=== PATIENT | female | born 1940 | race Caucasian/White ===

== ENCOUNTER 2017-03-21 06:30 | Day surgery (SDC) | payer MEDICARE, BC ==
[2017-03-17 16:27] VITALS: BMI 34.7
[~2017-03-21 06:30] MED LIST: ALPRAZolam 0.25 MG TAB PO PRN; ALPRAZolam 0.5 MG TAB PO PRN; ATORVASTATIN 80 MG TAB PO STA; NITROGLYCERIN SL TABS 0.4 MG TAB SUBLINGUAL PRN; SODIUM CHLORIDE 0.9% 1,000 ML in EMPTY BAG 1 BAG IV ONE
[2017-03-21] MEDS ORDERED: MIDAZOLAM 2 MG/2 ML VIAL ONE (07:06)
[2017-03-21] MEDS ORDERED: fentaNYL (PF) 50 MCG/ML 2 ML AMP ONE (07:07)
[2017-03-21] MEDS ORDERED: LIDOCAINE 2% INJ 20 MG/ML (20 ML MDV) ONE (07:08)
[2017-03-21] MEDS ORDERED: SODIUM CHLORIDE 0.9% 1,000 ML IV ONE (07:09)
[2017-03-21 07:19] LABS: INR 1.3 (<1.1); Prothrombin Time 12.6 sec (9.0-12.0)
[2017-03-21] MEDS ORDERED: fentaNYL (PF) 50 MCG/ML 2 ML AMP IV ONE ×2 (07:43)
[2017-03-21] MEDS ORDERED: MIDAZOLAM 2 MG/2 ML VIAL IV ONE (07:43)
[2017-03-21] MEDS ORDERED: BENZOCAINE SPRAY 100 APPLIC/CAN MUCOUS MEM ONE (07:44)
[2017-03-21] MEDS ORDERED: LIDOCAINE 2% INJ 20 MG/ML SQ ONE (08:08)
--- NOTE | 2017-03-21 08:30 | ECHOT ---
DATE OF SERVICE: INDICATION: Aortic stenosis. PROCEDURE NOTE: After obtaining informed consent, transesophageal echocardiogram was performed in the left lateral position using an Omniplane probe. Local and IV sedation were obtained using Xylocaine spray, 2 mg of Versed and 25 mcg of fentanyl. Patient tolerated the procedure well without any obvious immediate complications. FINDINGS: 1. Aortic valve is a 3-leaflet valve that is heavily calcified and shows severe restriction in leaflet mobility. By planimetry, the valve area is around 0.8 cm2. 2. Mitral valve shows moderate mitral regurgitation. 3. There is mild tricuspid regurgitation. 4. Left ventricle has normal size, shows atypical septal motion with preserved LV function with an ejection fraction of 50% to 55%. 5. Left atrium appears enlarged. 6. Right atrium and right ventricle are within normal limits. 7. 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 In the interatrial septum there is a PA flow with left to right shunt with agitated saline contrast study. There is no evidence of sqbji-ax-bdbw shunt. FINDINGS: FINAL IMPRESSION:
[2017-03-21] MEDS ORDERED: IOHEXOL 350 MG/ML 125ML BOTTLE INJ ONE (08:40)
[2017-03-21] MEDS ORDERED: IV FLUID CONTINUATION 1,000 ML IV ONE (08:41)
[2017-03-21] MEDS ORDERED: SODIUM CHLORIDE 0.9% 1,000 ML IV SCH (08:45)
[2017-03-21] MEDS ORDERED: RX INFO: IV CONTRAST WAS GIVEN 1 EACH MISC MISCELLANE PRN (08:45)
[2017-03-21 09:08] VITALS: RESP 16; TEMP 98
--- NOTE | 2017-03-21 09:20 | CC ---
DATE OF SERVICE: INDICATION: Severe aortic stenosis in a patient with known CAD, status post CABG. PROCEDURE NOTE: After obtaining informed consent, left heart catheterization and coronary angiogram, aortogram, selective injection of the bypass grafts and subclavian angiography was performed via the right femoral artery using standard Emelia catheters. Patient tolerated the procedure well without any obvious immediate complications. A femoral angiogram was obtained and Angio-Seal was deployed for hemostasis. FINDINGS: 1. HEMODYNAMICS: Central aortic pressures is 136/70 mm. 2. AORTOGRAM: Aortogram is performed in the left lateral position to evaluate for the ascending aorta. There is mild dilatation of the ascending aorta. There is no evidence of dissection aneurysm. There is 1 to 2+ aortic regurgitation noted. 3. ANGIOGRAPHIC DATA: LEFT MAIN CORONARY ARTERY: Left main coronary artery is a normal size vessel and appears heavily calcified. It divides into left anterior descending coronary artery and circumflex coronary artery. Circumflex coronary artery shows a 95% stenosis in its proximal part. Circumflex coronary artery and its branches are free of significant stenosis. Right coronary artery is a large dominant vessel and is free of significant stenosis. 4. BARRON to LAD: BARRON appears patent. Proximal and distal anastomotic sites are free of disease and point hope ira LAD is free of significant disease. 5. Venous graft to diag appears patent, body of the graft is free of disease. Proximal and distal anastomotic sites are free of disease and point hope ira vessel appears normal. 6. A subclavian angiogram was performed and there is a 40% subclavian stenosis noted. CONCLUSION: 1. Severe aortic stenosis by transesophageal echo. 2. [place] 1 vessel coronary artery disease with patent BARRON to LAD and venous graft to diagonal. 3. Moderate mitral regurgitation. 4. Evidence of qlja-qh-pkmfz shunt either way a small atrial septal defect or a patent foramen ovale. PLAN: Patient will need aortic valve replacement with or without mitral valve repair and closure of the PFO. Patient has subclavian artery stenosis. In case she has any symptoms after valve replacement, we will bring her back and perform a stent on that artery.
[2017-03-21] MEDS ORDERED: BENZOCAINE SPRAY 100 APPLIC/CAN ONE (10:21)
[2017-03-21 12:34] VITALS: PULSE 64
[2017-03-21 14:15] VITALS: BP 127/62
== END 2017-03-21 14:15 | disposition home or self-care (01) ==
LOC: CATHCVL 06:30
PROVIDERS: ATTEND Internal Medicine Cardiovascular Disease
DX: I08.3 Combined rheumatic disorders of mitral, aortic and tricuspid valves (principal); I71.2 Thoracic aortic aneurysm, without rupture; I25.10 Atherosclerotic heart disease of native coronary artery without angina pectoris; I25.810 Atherosclerosis of coronary artery bypass graft(s) without angina pectoris; I10 Essential (primary) hypertension; E78.5 Hyperlipidemia, unspecified; Z79.01 Long term (current) use of anticoagulants; Z79.899 Other long term (current) drug therapy; Z88.6 Allergy status to analgesic agent
CPT/HCPCS: 93312; 93320; 93325; 93455; 93567; 85610; C1760; C1769 ×2; C1894; J2001; J2250; J3010; Q9967

== ENCOUNTER → 2017-09-12 | Outpatient (CLI) | payer MEDICARE, BC ==
[2017-09-12 10:47] LABS: Blood Urea Nitrogen 17 mg/dL (7-17); Non-African American GFR(MDRD) >60 (>60 ml/min/1.73 sqM)
--- NOTE | 2017-09-12 11:42 | CT ---
EXAMINATION TYPE: CT chest w con DATE OF EXAM: 09/12/2017 COMPARISON: 05/16/2016 HISTORY: Chronic obstructive pulmonary disease CT DLP: 413.1 mGycm Automated exposure control for dose reduction was used. CONTRAST: CT scan of the chest is performed with IV Contrast, patient injected with 100 mL of Omnipaque 300. FINDINGS: LUNGS: There is extensive interlobular septal thickening in a pattern compatible with chronic interst itial lung disease which appears similar to the prior exam. Groundglass changes along the periphery o f the lung likely the basis of atelectasis. No consolidative pneumonia. No pleural effusion or pneumo thorax. MEDIASTINUM: The heart is enlarged and there is evidence of previous aortic surgery involving the bow el. Coronary artery calcification noted. Sternotomy wires noted. Shotty adenopathy in the mediastinum and hilum are noted. Small amount of air within the atrium may be iatrogenic. OTHER: Previous cholecystectomy changes noted. Hypertrophic and degenerative changes of the spine no juan. Small hiatal hernia noted. IMPRESSION: 1. Stable pattern of interstitial disease most typical of idiopathic pulmonary fibrosis. 2. Cardiomegaly with postsurgical change and coronary artery calcification. Small amount of air withi n the right left atrium may be iatrogenic. 3. Small hiatal hernia with esophageal wall thickening correlate clinically and if necessary with dir ect visualization.
== END | disposition home or self-care (01) ==
LOC: RADCTMAIN 10:14
PROVIDERS: ATTEND Internal Medicine Critical Care Medicine
DX: I51.7 Cardiomegaly (principal); I25.10 Atherosclerotic heart disease of native coronary artery without angina pectoris; J98.4 Other disorders of lung; J84.112 Idiopathic pulmonary fibrosis; J44.9 Chronic obstructive pulmonary disease, unspecified; Z88.0 Allergy status to penicillin; Z88.8 Allergy status to other drugs, medicaments and biological substances; Z98.890 Other specified postprocedural states
CPT/HCPCS: 82565; 84520; 71260; 36415; Q9967

== ENCOUNTER 2018-07-16 06:17 | Day surgery (SDC) | payer MEDICARE, BC ==
[2018-07-12 15:10] VITALS: BMI 34.5
[2018-07-16 07:06] VITALS: TEMP 97.7
[2018-07-16] MEDS ORDERED: MIDAZOLAM 2 MG/2 ML VIAL ONE (07:06)
[2018-07-16] MEDS ORDERED: fentaNYL (PF) 50 MCG/ML 2 ML AMP ONE (07:07)
[2018-07-16] MEDS ORDERED: IV FLUID CONTINUATION 400 ML IV ONE (07:13)
[2018-07-16 07:16] LABS: INR 2.8 (<1.2); Prothrombin Time 25.2 sec (9.0-12.0)
[2018-07-16 07:27] VITALS: RESP 16
[2018-07-16] MEDS ORDERED: MIDAZOLAM 2 MG/2 ML VIAL IV ONE (07:37)
[2018-07-16] MEDS ORDERED: BENZOCAINE SPRAY 1 CAN MUCOUS MEM ONE (07:37)
[2018-07-16] MEDS ORDERED: fentaNYL (PF) 50 MCG/ML 2 ML AMP IV ONE (07:41)
[2018-07-16] MEDS ORDERED: SODIUM CHLORIDE 0.9% 1,000 ML IV SCH (08:00)
--- NOTE | 2018-07-16 08:18 | ECHOT ---
TRANSESOPHAGEAL ECHOCARDIOGRAM INDICATION: TIA. PROCEDURE NOTE: After obtaining informed consent, transesophageal echocardiogram was performed in left lateral position using an OmniPlane probe. Local and IV sedation were obtained using 2 mg of Versed, 50 mcg of fentanyl and Xylocaine spray was used for local sedation. The patient tolerated the procedure well without any obvious immediate complications. Patient received moderate conscious sedation and total sedation time was 9 minutes. FINDINGS: 1. Interatrial septum: Interatrial septum appears aneurysmal, but we did not find any mlyr-cf-eaoal shunt by color-flow Doppler or vprsa-wz-cleg shunt by agitated saline contrast study. We injected agitated saline contrast twice. 2. Aortic valve: Patient has a bioprosthetic valve in aortic position, which seems to be functioning normally. 3. Mitral valve appears anatomically normal. There is mild to moderate central mitral regurgitation noted. 4. Tricuspid valve shows mild tricuspid regurgitation. 5. Left ventricle has normal size, shows preserved LV function with an ejection fraction of 50%. 6. Aorta shows dxxr-qm-mmwdkwan atherosclerotic changes. CONCLUSIONS: 1. There is no evidence of shunt across the interatrial septum. 2. There is no evidence of intracardiac thrombus. 3. Normally functioning bioprosthetic valve in aortic position. PLAN: No obvious cardiac source for thromboembolic CVA has been identified on this study. MMODL / IJN: [id number] /
[2018-07-16 08:29] VITALS: PULSE 50
[2018-07-16 09:33] VITALS: BP 112/64
== END 2018-07-16 09:30 | disposition home or self-care (01) ==
LOC: CATHCVL 06:17
PROVIDERS: ATTEND Internal Medicine Cardiovascular Disease
DX: I08.1 Rheumatic disorders of both mitral and tricuspid valves (principal); G45.9 Transient cerebral ischemic attack, unspecified; I25.10 Atherosclerotic heart disease of native coronary artery without angina pectoris; I10 Essential (primary) hypertension; E78.2 Mixed hyperlipidemia; Z95.1 Presence of aortocoronary bypass graft; Z87.891 Personal history of nicotine dependence; Z88.6 Allergy status to analgesic agent; Z88.8 Allergy status to other drugs, medicaments and biological substances; Z79.2 Long term (current) use of antibiotics; Z79.01 Long term (current) use of anticoagulants; Z79.890 Hormone replacement therapy; Z79.899 Other long term (current) drug therapy
CPT/HCPCS: 93312; 93320; 93325; 85610; J2250; J3010

== ENCOUNTER → 2018-09-13 | Outpatient (CLI) | payer MEDICARE, BC ==
--- NOTE | 2018-09-13 14:30 | CT ---
EXAMINATION TYPE: CT chest w con DATE OF EXAM: 09/13/2018 COMPARISON: 09/12/2017 HISTORY: COPD, chronic pulmonary fibrosis CT DLP: 820 mGycm. Automated Exposure Control for Dose Reduction was Utilized. TECHNIQUE: CT scan of the thorax is performed following with IV Contrast, patient injected with 100 mL of Isovue 300. FINDINGS: LUNGS: There is a peripheral basilar predominant distribution of subpleural reticulation compatible w ith a known history of pulmonary fibrosis. This does not appear to have progressed in the interim in comparison to exam of 09/12/2017. No end-stage honeycombing is appreciated. No new pulmonary mass is seen. There is no pleural effusion or pneumothorax seen. The tracheobronchial tree is patent. MEDIASTINUM: There are no greater than 1 cm hilar or mediastinal lymph nodes. The heart is again enl arged with postoperative change of the aortic valve and coronary arteries. Ostial stenosis of the lef t subclavian artery is seen approximated at 50%. Moderate atherosclerosis of the thoracic aorta is al so noted. No pericardial effusion is seen. OTHER: There is a small hiatal hernia. Gallbladder surgically absent. Scattered hyperdensities in the left upper abdomen may relate to calcified lymph nodes are postsurgical change. Mild multilevel dege nerative change of the thoracic spine is noted. IMPRESSION: No significant interval progression in the degree of pulmonary fibrosis in comparison to exam of 09/02/2017.
== END | disposition home or self-care (01) ==
LOC: RADCTMAIN 11:52
PROVIDERS: ATTEND Internal Medicine Critical Care Medicine
DX: J84.112 Idiopathic pulmonary fibrosis (principal)
CPT/HCPCS: 82565; 84520; 71260; 36415; Q9967

== ENCOUNTER → 2019-04-18 | Outpatient (CLI) | payer MEDICARE, BC ==
--- NOTE | 2019-04-18 15:34 | CT ---
EXAMINATION TYPE: CT chest w con DATE OF EXAM: 04/18/2019 COMPARISON: 09/13/2018 HISTORY: Idiopathic plumonary fibrosis CT DLP: 467.9 mGycm, Automated exposure control for dose reduction was used. CONTRAST: Performed injected with 100 mL of Isovue 300. TECHNIQUE: Axial images were obtained at 5 mm thick sections. Reconstructed images are reviewed on [employer] computer in the coronal plane. FINDINGS: Portion of the thyroid visualized is normal. There is diffuse increased lung markings bilaterally greater within the periphery in the lower lung f ields. Findings appear suggestive for pulmonary fibrosis. Findings were present previously but are pr ogressive. No enlarged mediastinal or hilar adenopathy is evident. The ascending aorta diameter at the level o f the main pulmonary artery is 3.9 cm. The main pulmonary artery diameter at the bifurcation is 3.1 cm. Coronary artery calcifications present. There is an aortic valve stent present Limited CT sections are obtained through the upper abdomen. Abdomen is essentially unremarkable. IMPRESSIONS: 1. Progression of previous pulmonary fibrosis
== END | disposition home or self-care (01) ==
LOC: RADCTMAIN 13:43
PROVIDERS: ATTEND Internal Medicine Critical Care Medicine
DX: J84.112 Idiopathic pulmonary fibrosis (principal)
CPT/HCPCS: 82565; 84520; 71260; 36415; Q9967